=== PATIENT | female | born 2000 | race Caucasian/White ===

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

== ENCOUNTER 2022-07-11 06:19 | Inpatient (IN) | payer OTHER ==
[2022-07-11] MEDS ORDERED: TERBUTALINE 1 MG/ML VIAL SQ PRN (06:30)
[2022-07-11] MEDS ORDERED: LIDOCAINE 0.5% (PF) 5 MG/ML (50 ML SDV) SQ PRN (06:30)
[2022-07-11] MEDS: LACTATED RINGERS 1,000 ML IV SCH ×2 (06:30→13:41)
[2022-07-11] MEDS ORDERED: OXYTOCIN 30 UNITS/500 ML NS 30 UNIT in SALINE 1 500ML.BAG IV SCH ×2 (06:30→18:00)
[2022-07-11 07:05] LABS: Basophils % (A) 0 %; Eosinophils # (A) 0.2 k/uL (0-0.7); Eosinophils % (A) 2 %; HCT 33.5 % (34.0-46.0); HGB 11.7 gm/dL (11.4-16.0); Lymphocytes # (A) 1.5 k/uL (1.0-4.8); Lymphocytes % (A) 17 %; MCH 31.3 pg (25.0-35.0); MCHC 35.1 g/dL (31.0-37.0); MCV 89.3 fL (80.0-100.0); Mean Platelet Volume 9.2; Monocytes # (A) 0.4 k/uL (0-1.0); Monocytes % (A) 5 %; Neutrophils # (A) 6.7 k/uL (1.3-7.7); Neutrophils % (A) 74 %; Platelet Count 209 k/uL (150-450); RBC 3.75 m/uL (3.80-5.40); RDW 13.7 % (11.5-15.5); WBC 9.1 k/uL (3.8-10.6)
--- NOTE | 2022-07-11 08:05 | P.HPOB ---
History of Present Illness H&P Date: 07/11/22 Chief Complaint: Postdates This is a 22-year-old 2 para 0010 woman with an estimated due date of 07/07/2022 based on LMP consistent with first trimester ultrasound. She is admitted at 40-4/7 weeks' gestation for postdates induction of labor. Her has been uncomplicated. Obstetric history: First trimester spontaneous miscarriage. Laboratory data: Blood type A positive, antibody screen negative, rubella immune, VDRL nonreactive, hep Glendy surface antigen negative, HIV negative, gonorrhea and clinic cultures negative, glucose tolerance testing within normal limits, group B strep negative. Review of Systems All systems: negative Past Medical History Past Medical History: No Reported History History of Any Multi-Drug Resistant Organisms: None Reported Past Surgical History: No Surgical Hx Reported Past Psychological History: No Psychological Hx Reported Smoking Status: Never smoker Past Alcohol Use History: None Reported Past Drug Use History: None Reported Medications and Allergies Home Medications Medication Instructions Recorded Confirmed Type Vit No.179/Iron/Folic 1 each PO 07/11/22 History [ Tablet] Allergies Allergy/AdvReac Type Severity Reaction Status Date / Time No Known Allergies Allergy Verified 07/11/22 06:29 Exam Vital Signs Temp Pulse Resp BP Pulse Ox 07/11/22 06:28 97.4 F L 78 16 134/82 98 Intake and Output 07/10/22 07/11/22 07/11/22 22:59 06:59 14:59 Other: Weight 97.976 kg Targeted physical exam is performed. This is a pleasant, visibly gravid female in no acute distress. On pelvic examination the cervix is 2 cm dilated, 60% effaced and the vertex in the -3 station. Artificial rupture of membranes is undertaken and clear fluid is noted. scalp electrode is placed in this process. heart tones are category 1. She is irregularly rosendo. Results Result Diagrams: 07/11/22 06:40 Abnormal Lab Results - Last 24 Hours (Table) 07/11/22 Range/Units 06:40 RBC 3.75 L (3.80-5.40) m/uL Hct 33.5 L (34.0-46.0) % Assessment and Plan (1) Post-dates Current Visit: Yes Status: Acute Code(s): O48.0 - POST-TERM SNOMED Code(s): 59568283 Plan: 22-year-old 2 para 0010 woman admitted at 40-4/7 weeks' gestation for postdates induction of labor. heart tones are currently reassuring. She is group B strep negative and Rh+. Pitocin induction of labor per protocol. May have an epidural anesthetic or other analgesia upon request in active labor.
[2022-07-11] MEDS: BUTORPHANOL 1 MG/ML 1 ML VIAL IV PRN ×2 (11:43→13:36)
[2022-07-11] MEDS ORDERED: CITRIC ACID-SODIUM CITRATE 15 ML CUP PO ONE (16:33)
[2022-07-11] MEDS ORDERED: METHYLERGONOVINE 0.2 MG/ML 1 ML AMP ONE (16:52)
[2022-07-11] MEDS ORDERED: ONDANSETRON 4 MG/2 ML VIAL ONE (16:52)
[2022-07-11] MEDS ORDERED: MORPHINE SULFATE (PF) 0.3 MG/0.3 ML SYR ONE (16:52)
[2022-07-11] MEDS ORDERED: OXYTOCIN 30 UNITS/500 ML NS BAG IV ONE (16:52)
[2022-07-11] MEDS ORDERED: miSOPROStoL 200 MCG TAB RECTAL STA (17:38)
[2022-07-11] MEDS ORDERED: HYDROmorphone 1 MG/ML 1 ML SYRINGE IVP PRN (17:59)
[2022-07-11] MEDS ORDERED: NALOXONE 0.4 MG/ML 1 ML VIAL IV PRN (17:59)
[2022-07-11] MEDS ORDERED: ZOLPIDEM 5 MG TAB PO PRN (17:59)
[2022-07-11] MEDS ORDERED: diphenhydrAMINE 50 MG CAP PO PRN (17:59)
[2022-07-11] MEDS ORDERED: diphenhydrAMINE 25 MG CAP PO PRN (17:59)
[2022-07-11] MEDS ORDERED: diphenhydrAMINE 50 MG/ML 1 ML VIAL IVP PRN ×2 (17:59)
[2022-07-11] MEDS ORDERED: ONDANSETRON 4 MG/2 ML VIAL IVP PRN (17:59)
[2022-07-11] MEDS ORDERED: METOCLOPRAMIDE 5 MG/ML 2 ML VIAL IVP PRN (17:59)
--- NOTE | 2022-07-11 17:59 | P.OP ---
Date of Procedure: 07/11/22 Preoperative Diagnosis: intrauterine at 40-4/7 weeks Arrestive descent dilatation Nonreassuring heart tones Postoperative Diagnosis: Intrauterine at 40-4/7 weeks Arrestive descent and dilatation Nonreassuring heart tones Occiput transverse position Procedure(s) Performed: Primary low transverse section Anesthesia: spinal Surgeon: Emilia Avery Yarding Engineer #1: Namrata Narayan Estimated Blood Loss (ml): 850 IV fluids (ml): 1,000 Urine output (ml): 200 Pathology: none sent Condition: stable Disposition: floor Indications for Procedure: This is a 22-year-old 2 para 0010 woman who is admitted at 40-4/7 weeks' gestation for postdates induction of labor. Following admission she underwent an artificial rupture of membranes and Pitocin induction of labor per protocol. She was 2 cm dilated at initiation of induction. She did progress to 3 cm dilated by approximately 1 PM and received Stadol analgesia. She however did not have any further progression past 3 cm and did begin to have repetitive early times heart rate decelerations. This is in the setting of an otherwise reassuring tracing with good variability. Despite Pitocin her cervix did not dilate further and I was suspicious of asynclitism. The situation was reviewed with the patient and her . My concern was for the nonprogression of labor secondary to asynclitic position as well as repetitive early decelerations. Risks benefits and alternatives to section were reviewed with the patient in detail and all questions were answered. Nurses in the room during discussion. On should decision-making was undertaken and the patient elected to proceed to primary low transverse section. Risks of the procedure including bleeding, infection, transfusion, injury to bowel, bladder, ureters and/or other material maternal or structures were reviewed. Consent was obtained. Operative Findings: Male in the occiput transverse position with Apgars of 9 at 1 minute and 9 at 5 minutes weighing 8 lbs. 2 oz. Intact, three-vessel cord placenta with some calcifications. Normal bilateral fallopian tubes and ovaries. Very thin low uterine segment. Description of Procedure: After the patient was met preoperatively and all questions were answered, she was taken to the operating room where spinal anesthetic was administered without incident. She was then positioned, prepped and draped in the dorsal supine position with a leftward tilt. Becker catheter was placed. After anesthetic was confirmed adequate, a low transverse skin incision was made. This was carried down to the underlying fascia both sharply and with the electrocautery. The fascia was then incised in the midline and extended bilaterally with the Ingram scissors. The superior aspect of the fascial incision was elevated and the underlying rectus muscles dissected off sharply and with the electrocautery. The inferior aspect of the fascial incision was also elevated and the underlying rectus muscles dissected off sharply. The muscles were adherent in the midline. These were bluntly and the peritoneum was tented up with hemostats. The peritoneum was entered sharply with the Metzenbaum scissors. The peritoneal incision was extended inferiorly and superiorly with good visualization of the bladder. The bladder blade was placed. The vesicouterine peritoneum was identified, tented up and entered sharply, the bladder flap was created both sharply and digitally. A low transverse uterine incision was then made sharply and carried down to the underlying amniotic membranes. Membranes were ruptured and clear fluid was noted. The uterine incision was extended bilaterally bluntly. The 's head was delivered from the incision without difficulty. The nose and mouth were bulb suctioned. The rest of the infant was delivered onto the field without difficulty. And cut and the infant was taken to the warmer. An intact, three-vessel cord placenta was then manually removed and the uterus was exteriorized. The uterus was cleared of all clot and debris. The uterine incision was delineated with Kirkpatrick clamps. The uterine incision was then closed in a running locked fashion with 0 Vicryl suture. A second imbricating layer was placed. The low uterine segment was noted to be not well contracted. The patient received Methergine and Hemabate for uterine atony. This did significantly improve the atony however the low uterine segment remained quite soft. Additional dcztyy-ly-[id number] sutures were placed as necessary along the incision. Hemostasis was achieved and Surgicel powder was placed prophylactically along the incision. The fascial edges, peritoneal edges and rectus muscles were inspected and Bovie electrocautery utilized were necessary for hemostasis. The fascia was then closed in a running fashion with 0 Vicryl suture. The subcuticular tissue was copiously suction irrigated and Bovie electrocautery utilized were necessary for hemostasis. 3-0 Vicryl suture was utilized to reapproximate the subcuticular tissue. The skin was then closed in a subcutaneous fashion with 4-0 Vicryl suture. All counts reported to me as correct by the operating room staff at the end of the procedure. The patient received antibiotics preoperatively and Pitocin following cord clamp. 1000 g of Cytotec was placed rectally following cessation of the procedure. Mother and were both transported from the room in stable condition.
[2022-07-11] MEDS: SENNOSIDES-DOCUSATE SODIUM 1 EACH TAB PO SCH (21:15)
[2022-07-12] MEDS: IBUPROFEN IV 800 MG in SODIUM CHLORIDE 0.9% 250 ML IV SCH ×2 (00:07→09:43)
[2022-07-12] MEDS: ACETAMINOPHEN TAB 500 MG TAB PO SCH ×4 (00:07→21:52)
[2022-07-12] MEDS: IBUPROFEN 600 MG TAB PO SCH ×3 (00:08→23:41)
[2022-07-12] MEDS: LACTATED RINGERS 1,000 ML IV SCH ×3 (00:08→05:16)
[2022-07-12 06:57] LABS: Basophils % (A) 0 %; Eosinophils % (A) 0 %; HCT 28.9 % (34.0-46.0); Lymphocytes # (A) 1.3 k/uL (1.0-4.8); Lymphocytes % (A) 10 %; MCH 30.9 pg (25.0-35.0); MCHC 33.7 g/dL (31.0-37.0); MCV 91.8 fL (80.0-100.0); Mean Platelet Volume 9.4; Monocytes # (A) 0.5 k/uL (0-1.0); Monocytes % (A) 4 %; Neutrophils # (A) 10.8 k/uL (1.3-7.7); Neutrophils % (A) 84 %; Platelet Count 193 k/uL (150-450); RBC 3.15 m/uL (3.80-5.40); RDW 13.6 % (11.5-15.5); WBC 12.9 k/uL (3.8-10.6)
[2022-07-12 07:01] LABS: HGB 9.7 gm/dL (11.4-16.0)
--- NOTE | 2022-07-12 07:34 | P.PN ---
Progress Note - Text 07/12/22 633am 22-year-old female status post with spinal Duramorph. Patient seen and evaluated for postop pain control, patient has a VAS of 2 with no complains of nausea vomiting. She has mild pruritus which should subside.
--- NOTE | 2022-07-12 09:15 | P.PNOBGPC ---
Subjective - Subjective Principal diagnosis: Postop day 1 Interval history: Reports being able to empty her bladder however no sensation with this yet. Patient reports: Reports appetite normal, Reports pain well controlled, Reports ambulating normally, Denies voiding normally, Denies dizzy ambulation : doing well Objective - Vital Signs Latest vital signs: Vital Signs Temp Pulse Resp BP Pulse Ox 07/12/22 04:00 98.3 F 60 16 126/74 07/12/22 00:00 98.3 F 74 16 124/76 07/11/22 20:06 80 16 137/81 98 07/11/22 19:36 70 16 133/60 96 07/11/22 19:06 75 16 156/87 97 07/11/22 18:51 73 16 131/66 98 07/11/22 18:36 75 16 112/67 97 07/11/22 18:21 76 16 134/73 97 07/11/22 18:06 98.0 F 86 16 123/79 100 Intake and Output 07/11/22 07/12/22 07/12/22 22:59 06:59 14:59 Output Total 1555 1400 0 Balance -1555 -1400 0 Output: Urine 600 1400 0 Output, Quantitative 955 Blood Loss Other: Voiding Method Indwelling Catheter - Exam Extremities: Present: normal, edema (1+) Abdomen: Present: normal appearance, soft, distention (Mild). Absent: tenderness Incision: Present: intact, dressed Uterus: Present: normal, firm. Absent: tenderness - Labs Labs: Abnormal Lab Results - Last 24 Hours (Table) 07/12/22 Range/Units 06:18 WBC 12.9 H (3.8-10.6) k/uL RBC 3.15 L (3.80-5.40) m/uL Hgb 9.7 L D (11.4-16.0) gm/dL Hct 28.9 L (34.0-46.0) % Neutrophils # 10.8 H (1.3-7.7) k/uL Assessment and Plan (1) Post-dates Current Visit: Yes Status: Acute Code(s): O48.0 - POST-TERM SNOMED Code(s): 11653565 (2) Arrest of dilation, delivered, current hospitalization Current Visit: Yes Status: Acute Code(s): O62.1 - SECONDARY UTERINE INERTIA SNOMED Code(s): 01758662 (3) Non-reassuring heart tones, delivered, current hospitalization Current Visit: Yes Status: Acute Code(s): O76 - ABNLT IN HEART RATE AND RHYTHM COMP LABOR AND DELIVERY SNOMED Code(s): 042540666 (4) S/P section Current Visit: Yes Status: Acute Code(s): Z98.891 - HISTORY OF UTERINE SCAR FROM PREVIOUS SURGERY SNOMED Code(s): 438411083 Plan: Postop day 1 status post primary low transverse section secondary to arrest of dilation, occiput transverse position. Advance to regular diet this morning. Discussed on oral pain control. Anticipate probable discharge home tomorrow.
[2022-07-12] MEDS: SENNOSIDES-DOCUSATE SODIUM 1 EACH TAB PO SCH ×2 (09:40→17:38)
[2022-07-12] MEDS ORDERED: SIMETHICONE 80 MG CHEWABLE PO PRN (19:37)
[2022-07-12 23:54] VITALS: TEMP 98
[2022-07-13] MEDS: ACETAMINOPHEN TAB 500 MG TAB PO SCH ×3 (05:42→11:46)
[2022-07-13] MEDS: IBUPROFEN IV 800 MG in SODIUM CHLORIDE 0.9% 250 ML IV SCH (05:47)
[2022-07-13] MEDS: IBUPROFEN 600 MG TAB PO SCH ×2 (05:48→08:45)
[2022-07-13] MEDS: LACTATED RINGERS 1,000 ML IV SCH (05:50)
[2022-07-13] MEDS: SENNOSIDES-DOCUSATE SODIUM 1 EACH TAB PO SCH (08:45)
[2022-07-13 08:54] VITALS: BP 137/77; PULSE 142; RESP 44
--- NOTE | 2022-07-13 10:03 | P.PNOBGPC ---
Subjective - Subjective Principal diagnosis: Primary Lower Transverse Section Interval history: Patient doing well this morning. Reports ambulating, voiding without difficulty, tolerating PO, lochia light, passing flatus. Patient with success. Denies chest pain, shortness of breathing, fevers, chills. Patient reports: Reports appetite normal, Reports voiding normally, Reports pain well controlled, Reports ambulating normally, Reports other (passing flatus) : doing well, nursing well, other (s/p circumcision ) Objective - Vital Signs Latest vital signs: Vital Signs Temp Pulse Resp BP Pulse Ox 07/13/22 08:52 98.0 F 142 H 44 H 137/77 07/12/22 23:47 98.0 F 72 16 115/73 07/12/22 16:00 98.2 F 66 16 118/74 07/12/22 12:00 98.4 F 74 14 126/71 100 Intake and Output 07/12/22 07/13/22 07/13/22 22:59 06:59 14:59 Other: # Voids 3 1 - Exam Extremities: Present: normal Abdomen: Present: normal appearance, soft Incision: Present: normal, dry, intact Uterus: Present: normal, firm Assessment and Plan Assessment: 22 year old POD#2 s/p Primary LTCS at 40w4d 2/2 failure to progress, non-reassuring FHTs remote from delivery Plan: Discharge home today.
--- NOTE | 2022-07-13 10:30 | P.DS ---
Providers Date of admission: 07/11/22 06:19 Expected date of discharge: 07/13/22 Attending physician: Emilia Avery Primary care physician: Stated None Hospital Course: Patient did well in her postoperative course and met all postoperative milestones. Assessment: 22 y/o POD#2 s/p 1LTCS for failure to progress and non-reassuring FHTs. Health Concerns: None Patient Condition at Discharge: Good Plan - Discharge Summary Discharge Rx Participant: No New Discharge Prescriptions: New Ibuprofen [Motrin] 600 mg PO Q6H PRN #30 tab PRN Reason: Moderate Pain (Scale 4 To 6) oxyCODONE HCL [OxyIR] 5 mg PO Q4HR PRN 3 Days #18 tab PRN Reason: Severe Pain (Scale 7 To 10) Acetaminophen Tab [Tylenol] 500 mg PO Q6H PRN #30 tab PRN Reason: Mild Pain (Scale 1 To 3) Sennosides-Docusate Sodium [Senokot-S] 2 each PO BID PRN #60 tab PRN Reason: Constipation Discontinued Vit No.179/Iron/Folic [ Tablet] 1 each PO Discharge Medication List Acetaminophen Tab [Tylenol] 500 mg PO Q6H PRN #30 tab 07/13/22 [Rx] Ibuprofen [Motrin] 600 mg PO Q6H PRN #30 tab 07/13/22 [Rx] Sennosides-Docusate Sodium [Senokot-S] 2 each PO BID PRN #60 tab 07/13/22 [Rx] oxyCODONE HCL [OxyIR] 5 mg PO Q4HR PRN 3 Days #18 tab 07/13/22 [Rx] Follow up Appointment(s)/Referral(s): Emilia Avery MD [STAFF PHYSICIAN] - 2 Weeks Patient Instructions/Handouts: Caring for Your Baby (DC), (DC), Depression (DC), Control Pills (GEN), Intrauterine Device (DC), Vaginal Ring (GEN), Injectable Contraception (DC), Control Implant (DC), Vasectomy (DC), Your Baby (DC) Activity/Diet/Wound Care/Special Instructions: Activity as tolerated. No heavy lifting (heavier than 15 lbs) for 6 weeks. Pelvic rest for 6 weeks. No bathing for 6 weeks. Discharge Disposition: HOME SELF-CARE
== END 2022-07-13 12:15 | disposition home or self-care (01) | DRG 788 ==
LOC: 4FBP 06:19
PROVIDERS: ADMIT Obstetrics & Gynecology; ATTEND Obstetrics & Gynecology
PROC: 10907ZC Drainage of Amniotic Fluid, Therapeutic from Products of Conception, Via Natural or Artificial Opening (ICD-10-PCS; 2022-07-11)
PROC: 3E0DXGC Introduction of Other Therapeutic Substance into Mouth and Pharynx, External Approach (ICD-10-PCS; 2022-07-11)
PROC: 3E033VJ Introduction of Other Hormone into Peripheral Vein, Percutaneous Approach (ICD-10-PCS; 2022-07-11)
PROC: 10D00Z1 Extraction of Products of Conception, Low, Open Approach (ICD-10-PCS; principal; 2022-07-11 17:29)
DX: O48.0 Post-term pregnancy (principal); O62.0 Primary inadequate contractions; O76 Abnormality in fetal heart rate and rhythm complicating labor and delivery; O62.1 Secondary uterine inertia; O99.73 Diseases of the skin and subcutaneous tissue complicating the puerperium; Z28.310 Unvaccinated for COVID-19; L29.9 Pruritus, unspecified; Z37.0 Single live birth; Z3A.40 40 weeks gestation of pregnancy; Z79.899 Other long term (current) drug therapy
CPT/HCPCS: 85025; 86850; 86900; 86901